=== PATIENT | male | born 1960 | race Caucasian/White ===

== ENCOUNTER 2017-11-12 19:43 | Emergency (ER) ==
[2017-11-12] MEDS ORDERED: PEPCID IVP STA (19:46)
[2017-11-12] MEDS ORDERED: SODIUM CHLORIDE 1,000 ML IV STA (19:46)
[2017-11-12] MEDS ORDERED: SOLU-MEDROL 125 MG IVP STA (19:47)
--- NOTE | 2017-11-12 19:50 | ED.PDOC ---
General ED Provider: Dr. GARCÍA PIEDRA Chief Complaint: Allergic Reaction Stated Complaint: Patient is 57 year old who comes to the ER after he states he was stung to left wrist by a bee. States that it started sweeling and could not breathe. His eyes were swollen and had blurry vision. He was noted to have an increase in confusion. He did not feel right, feels hot and chest hurting. used epi pen at home from his leo and took 2 benadryl. Now complains ofrash all over with itching and leo difficulty breathing. Time Seen by Physician: 20:00 Mode of Arrival: Walk-In Information Source: Patient, Family Primary Care Provider: LOULOU URIBE Nursing and Triage Documentation Reviewed and Agree: Yes Reviewed sepsis parameters & appropriate labs ordered?: No System Inflammatory Response Syndrome: Not Applicable Sepsis Protocol: For patient's 13 years and over: Temp is 96.8 and below OR 101 and greater Pulse >90 BPM Resp >20/minute Acutely Altered Mental Status Are patient's symptoms suggestive of a new infection, such as: -Pneumonia -Skin, Soft Tissue -Endocarditis -UTI -Bone, Joint Infection -Implantable Device -Acute Abdominal Infection -Wound Infection -Meningitis -Blood Stream Catheter Infection -Unknown System Inflammatory Response Syndrome: Not Applicable Environmental Complaint Exam - Allergic Reaction Complaint/Exam Onset/Duration: 50 min ago Symptoms Are: Still present Timing: Constant Initial Severity: Severe Current Severity: Moderate Location: Diffuse Character: Present: Swelling (Left wrist. ) Aggravating: Reports: None Alleviating: Reports: Antihistamines (benadryl 50mg ), Epinephrine Associated Signs and Symptoms: Reports: Difficulty breathing, Chest pain, Rash Possible Reaction To: Reports: Insect (bee sting. ) Diphenhydramine Prior to Arrival: Yes Epinephrine Auto Injector Prior to Arrival: Yes Respiratory Distress: None Findings: Present: Urticarial rash, Macular rash Differential Diagnoses: Anaphylaxis, Urticaria Quality Indicator For Non-Traumatic Chest Pain/Syncope: EKG Performed Review of Systems - Review Of Systems Constitutional: Reports: No symptoms Eyes: Reports: No symptoms Ears, Nose, Mouth, Throat: Reports: No symptoms Respiratory: Reports: Short of air Cardiac: Reports: No symptoms GI: Reports: No symptoms : Reports: No symptoms Musculoskeletal: Reports: No symptoms Skin: Reports: Rash Neurological: Reports: Anxiety, Weakness Endocrine: Reports: No symptoms Hematologic/Lymphatic: Reports: No symptoms All Other Systems: Reviewed and Negative Past Medical History - Past Medical History Endocrine: Reports: Dyslipidemia Cardiovascular: Reports: CAD (coronary spams may 2016 ), Hypertension Respiratory: Reports: None Hematological: Reports: None Gastrointestinal: Reports: None Genitourinary: Reports: None Neuro/Psych: Reports: None Musculoskeletal: Reports: None Cancer: Reports: None Other Pertinent Past Medical History: bilat knee surgeriescyst removed from parotid gland[End] - Surgical History General Surgical History: Reports: Orthopedic (bilat knee surgeries), Other ( cyst removed from parotid gland) - Family History Family History: Reports: Unknown - Social History Smoking Status: Former smoker Hx Substance Use: No Alcohol Screening: Occasionally Physical Exam - Physical Exam Appearance: Ill-appearing Ill-appearing: Severe Pain Distress: Mild Eyes: CHUCK, EOMI, Conjunctiva clear ENT: Ears normal, Nose normal, Oropharynx normal Neck: Supple (no stridor on ausculation) Respiratory: Airway patent, Breath sounds clear, Breath sounds equal, Respirations nonlabored Cardiovascular: RRR, Pulses normal, No rub, No murmur GI/: Soft, Nontender, No masses, Bowel sounds normal, No Organomegaly Musculoskeletal: Normal strength, ROM intact, No edema, No calf tenderness Skin: Warm, Dry, Normal color Neurological: Sensation intact, Motor intact, Alert, Oriented Psychiatric: Anxious Critical Care Note - Critical Care Note Total Time (mins): 45 Course - Course Hematology/Chemistry: 11/12/17 19:57 Orders, Labs, Meds: Lab Review 11/12/17 19:57 Sodium 139 Potassium 3.6 Chloride 106 Carbon Dioxide 17 L Anion Gap 19.6 BUN 20 H Creatinine 1.35 H Estimated GFR (MDRD) 54.00 BUN/Creatinine Ratio 14.81 Glucose 181 H Calcium 11.0 H Total Bilirubin 0.8 AST 35 ALT 72 Alkaline Phosphatase 65 Total Creatine Kinase 158 CK-MB (CK-2) 1.7 CK-MB (CK-2) % 1.84271 Troponin I < 0.0100 Total Protein 7.3 Albumin 4.3 Globulin 3.0 Albumin/Globulin Ratio 1.43 Orders Category Date Time Status EKG-(ED ONLY) Stat CARDIO 11/12/17 19:46 Completed ED IV/MEDIPORT/POWERPORT .ONCE EMERGENCY 11/12/17 19:45 Active COMPREHENSIVE METABOLIC PANEL Stat LAB 11/12/17 19:57 Completed CREATINE KINASE Stat LAB 11/12/17 19:57 Completed TROPONIN I Stat LAB 11/12/17 19:57 Completed 0.9 % Sodium Chloride [Saline Flush] MEDS 11/12/17 19:46 Discontinued 1 syr IVF PRN PRN Epinephrine Amp [Epinephrine 1:1,000 Amp] MEDS 11/12/17 20:00 Discontinued 1 mg .ROUTE .STK-MED ONE Epinephrine [Adrenalin 1:1000 Sdv] MEDS 11/12/17 19:52 Discontinued 0.3 mg IM ONCE STA Famotidine Inj [Pepcid] MEDS 11/12/17 19:46 Discontinued 20 mg IVP ONCE STA Methylprednisolone Sod Succ/Pf [Solu-Medrol 125 mg] MEDS 11/12/17 19:47 Discontinued 125 mg IVP ONCE STA Sodium Chloride 0.9% [Sodium Chloride] 1,000 ml MEDS 11/12/17 19:46 Discontinued IV BOLUS Medications Discontinued Medications Generic Name Dose Route Start Last Admin Trade Name Freq PRN Reason Stop Dose Admin Epinephrine HCl 0.3 mg 11/12/17 19:52 11/12/17 20:18 Adrenalin 1:1000 Sdv IM 11/12/17 19:53 0.3 mg ONCE STA Administration Famotidine 20 mg 11/12/17 19:46 11/12/17 20:19 Pepcid IVP 11/12/17 19:47 20 mg ONCE STA Administration Sodium Chloride 1,000 mls @ 1,000 mls/hr 11/12/17 19:46 11/12/17 20:19 Sodium Chloride IV 11/12/17 20:45 1,000 mls/hr BOLUS STA Administration Methylprednisolone Sodium Succinate 125 mg 11/12/17 19:47 11/12/17 20:19 Solu-Medrol 125 Mg IVP 11/12/17 19:48 125 mg ONCE STA Administration Sodium Chloride 1 syr 11/12/17 19:46 Saline Flush IVF PRN PRN To flush IV Vital Signs: Temp Pulse Resp BP Pulse Ox 11/12/17 19:43 97.3 F L 90 22 110/66 95 Departure - Departure Time of Disposition: 22:20 Disposition: HOME SELF-CARE Discharge Problem: Bee sting allergy Anaphylaxis Qualifiers: Encounter type: initial encounter Qualified Code(s): T78.2XXA - Anaphylactic shock, unspecified, initial encounter Instructions: Anaphylaxis (ED) Condition: Stable Pt referred to PMD for follow-up: Yes IPMP verified?: No Additional Instructions: Use Epi pen as needed Follow up with PCP in 3 days Prescriptions: Epinephrine [Epipen Twinpak] 0.3 mg IM PRN PRN #2 [email or web address] PRN Reason: anaphylaxisis Methylprednisolone [Medrol Dosepak] 4 mg PO DIRECTED #1 pkg Allergies/Adverse Reactions: Allergies bee venom protein (honey bee) Adverse Reaction (Verified 11/12/17 20:14) Home Medications: Ambulatory Orders Lisinopril 20 mg PO BID 05/27/16 Omeprazole [Prilosec] 20 mg PO BID 05/27/16 Amlodipine Besylate [Norvasc] 10 mg PO DAILY 11/12/17 Epinephrine [Epipen Twinpak] 0.3 mg IM PRN PRN #2 [email or web address] 11/12/17 Methylprednisolone [Medrol Dosepak] 4 mg PO DIRECTED #1 pkg 11/12/17 Disposition Discussed With: Patient, Family
[2017-11-12] MEDS ORDERED: ADRENALIN 1:1000 SDV IM STA (19:52)
[2017-11-12] MEDS ORDERED: EPINEPHRINE 1:1,000 AMP ONE (20:00)
[2017-11-12 20:11] VITALS: BP 110/66; TEMP 97.3; BMI 27.4
== END 2017-11-12 22:28 | disposition home or self-care (01) ==
LOC: ED 19:43
DX: T63.441A Toxic effect of venom of bees, accidental (unintentional), initial encounter (principal); T78.2XXA Anaphylactic shock, unspecified, initial encounter; T78.3XXA Angioneurotic edema, initial encounter; R41.0 Disorientation, unspecified; R06.9 Unspecified abnormalities of breathing; R07.9 Chest pain, unspecified
CPT/HCPCS: 36415; 80053; 82550; 82553; 84484; 93005; 93010; 96372; 96374; 96375; 99283